=== PATIENT | female | born 1955 | race African-American/Black ===

== ENCOUNTER 2020-05-17 12:45 | Inpatient (IN) | payer MEDICARE, MEDICAID ==
[~2020-05-17] VITALS: Ht 167.6 cm; Wt 94.4 kg
[~2020-05-17 12:45] MED LIST: HYDR12.529 PO; INSU3INS6 SQ; METF-414 PO
[2020-05-17] MEDS ORDERED: METOCLOPRAMIDE HCL 10MG/2ML VIAL IV ONE (13:15)
[2020-05-17] MEDS ORDERED: METOPROLOL TARTRATE 5MG/5ML VIAL IV NR (13:45)
[2020-05-17 14:03] LABS: BASOPHILS % 0.4 % (0.0-2.0); EOSINOPHILS % 4.2 % (0.0-5.0); LYMPHOCYTES % 20.4 % (20.0-50.0); MEAN CORPUSCULAR HEMOGLOBIN 26.4 pg (28.0-32.0); MEAN CORPUSCULAR VOLUME 81.2 fL (81.0-99.0); MEAN PLATELET VOLUME 9.4 fl (7.4-10.4); MONOCYTES % 4.8 % (2.0-8.0); NEUTROPHILS % 70.2 % (40.0-76.0); PLATELET 211 x1000/uL (130-400); RED CELL DISTRIBUTION WIDTH 15.5 % (11.6-14.6)
[2020-05-17 14:07] LABS: CHLORIDE 108 mEq/L (98-107)
[2020-05-17] MEDS ORDERED: DIPHENHYDRAMINE 50MG/ML VIAL IV PRN (14:45)
[2020-05-17] MEDS ORDERED: ENOXAPARIN 40MG/0.4ML SYR SUBCUT SCH (14:45)
[2020-05-17] MEDS ORDERED: ONDANSETRON HCL 4MG/2ML INJ IV PRN (14:45)
[2020-05-17] MEDS ORDERED: CLONIDINE 0.1MG TABLET PO PRN (14:45)
[2020-05-17] MEDS ORDERED: IPRATROPIUM/ALBUTEROL 0.5-3(2.5)MG/3ML NEB HHN PRN (14:45)
[2020-05-17] MEDS ORDERED: ACETAMINOPHEN 325MG TABLET PO PRN (14:45)
[2020-05-17] MEDS ORDERED: POTASSIUM CHLORIDE INJ 40 MEQ in DEXT 5% WATER 250 ML IV NR (15:30)
[2020-05-17 16:01] LABS: PROTHROMBIN TIME 11.1 sec (9.6-11.0)
[2020-05-17] MEDS ORDERED: DILTIAZEM HCL 5MG/ML 5ML VIAL IV PRN (16:15)
[2020-05-17] MEDS: DILTIAZEM HCL 120MG CAPSULE CD 24HR PO SCH (17:52)
[2020-05-17] MEDS: ENOXAPARIN 100MG/ML SYR SUBCUT SCH (17:53)
[2020-05-17] MEDS: INSULIN LISPRO 100 UNITS/ML SUBCUT SCH (17:54)
[2020-05-17] MEDS ORDERED: ENOXAPARIN 30MG/0.3ML SYR SUBCUT SCH (21:00)
[2020-05-17 21:32] VITALS: BP 138/107
[2020-05-17] MEDS ORDERED: INSULIN GLARGINE UD 100 UNITS/ML SYR SUBCUT SCH (22:00)
[2020-05-17] MEDS: METOPROLOL TARTRATE 25MG TABLET PO SCH (22:16)
[2020-05-17] MEDS: ATORVASTATIN CALCIUM 40MG TABLET PO SCH (22:17)
[2020-05-17] MEDS ORDERED: INSU3INS8 SUBCUT (22:49)
[2020-05-17] MEDS ORDERED: ATEN100T MT (22:49)
[2020-05-17] MEDS ORDERED: LISI-186 MT (22:49)
[2020-05-17] MEDS ORDERED: CHLO25TA2 PO (22:49)
[2020-05-17] MEDS ORDERED: DIPH25TA23 PO (22:49)
[2020-05-17] MEDS ORDERED: TC1U15 TP (22:49)
[2020-05-17] MEDS ORDERED: ASPI-1406 MT (22:49)
[2020-05-17] MEDS ORDERED: MULT-1195 MT (22:49)
[2020-05-17] MEDS ORDERED: INSU100I24 SQ (22:49)
[2020-05-17] MEDS ORDERED: GABA250S4 PO (22:49)
[2020-05-17] MEDS ORDERED: FISH MT (22:49)
[2020-05-17] MEDS: INSULIN GLARGINE UD 100 UNITS/ML SYR SUBCUT SCH (22:57)
[2020-05-17] MEDS ORDERED: *PATIENT'S OWN MEDICATION STORAGE XX SCH (23:00)
[2020-05-18] VITALS: BP 98/64
[2020-05-18 04:00] VITALS: BP 119/53
[2020-05-18] MEDS: INSULIN LISPRO 100 UNITS/ML SUBCUT SCH ×3 (05:13→17:58)
[2020-05-18] MEDS: ENOXAPARIN 100MG/ML SYR SUBCUT SCH ×2 (05:14→17:51)
[2020-05-18 06:15] LABS: BASOPHILS % 0.6 % (0.0-2.0); EOSINOPHILS % 5.1 % (0.0-5.0); HEMATOCRIT. 40.8 % (36.0-48.0); HEMOGLOBIN. 13.3 g/dL (12.0-16.0); LYMPHOCYTES % 29.5 % (20.0-50.0); MEAN CORPUSCULAR VOLUME 82.8 fL (81.0-99.0); MEAN PLATELET VOLUME 9.5 fl (7.4-10.4); MONOCYTES % 6.1 % (2.0-8.0); NEUTROPHILS % 58.7 % (40.0-76.0); PLATELET 195 x1000/uL (130-400); RED BLOOD CELL COUNT 4.93 mill/uL (4.2-5.4); RED CELL DISTRIBUTION WIDTH 15.5 % (11.6-14.6)
[2020-05-18 06:34] LABS: CHLORIDE 109 mEq/L (98-107)
[2020-05-18 06:49] LABS: LDL CHOLESTEROL 85 mg/dL (5-100)
[2020-05-18 06:51] LABS: HDL CHOLESTEROL 46 mg/dL (40-59)
[2020-05-18 08:00] VITALS: BP 117/85
[2020-05-18] MEDS ORDERED: LISINOPRIL 5MG TABLET PO SCH (09:00)
[2020-05-18] MEDS: ASPIRIN 81MG TABLET PO SCH (09:15)
[2020-05-18] MEDS: DILTIAZEM HCL 120MG CAPSULE CD 24HR PO SCH (09:16)
[2020-05-18] MEDS: METOPROLOL TARTRATE 25MG TABLET PO SCH (09:16)
[2020-05-18] MEDS ORDERED: POTASSIUM CHLORIDE 20MEQ TABLET SR PO NR ×2 (09:42→10:01)
[2020-05-18] MEDS ORDERED: DIGOXIN 500MCG/2ML AMP IV NR ×2 (10:00→14:30)
[2020-05-18] MEDS ORDERED: POTASSIUM CHLORIDE INJ 40 MEQ in DEXT 5% WATER 250 ML IV NR (10:00)
[2020-05-18] MEDS: INSULIN GLARGINE UD 100 UNITS/ML SYR SUBCUT SCH ×2 (10:30→20:51)
[2020-05-18 12:00] VITALS: BP 110/76
[2020-05-18 16:00] VITALS: BP 107/56
[2020-05-18] MEDS ORDERED: MIDODRINE HCL 2.5MG TABLET PO SCH (16:45)
[2020-05-18 20:00] VITALS: BP 136/70
[2020-05-18] MEDS: ATORVASTATIN CALCIUM 40MG TABLET PO SCH (20:52)
[2020-05-18] MEDS: METOPROLOL TARTRATE 50MG TABLET PO SCH (20:53)
[2020-05-18] MEDS ORDERED: METOPROLOL TARTRATE 5MG/5ML VIAL IV PRN (21:09)
[2020-05-18] MEDS: MIDODRINE HCL 5MG TABLET PO SCH (22:01)
[2020-05-18] MEDS ORDERED: MAGNESIUM 2 G PREMIX 50 ML IV SCH (23:00)
[2020-05-18] MEDS: DILTIAZEM HCL 60MG TABLET PO SCH (23:49)
[2020-05-19] VITALS: BP 146/78
[2020-05-19 04:00] VITALS: BP 137/79
[2020-05-19] MEDS: DILTIAZEM HCL 60MG TABLET PO SCH ×3 (06:23→18:05)
[2020-05-19] MEDS: ENOXAPARIN 100MG/ML SYR SUBCUT SCH ×2 (06:24→18:00)
[2020-05-19] MEDS: INSULIN LISPRO 100 UNITS/ML SUBCUT SCH ×5 (06:25→21:06)
[2020-05-19] MEDS: MIDODRINE HCL 5MG TABLET PO SCH ×3 (06:28→21:07)
[2020-05-19] MEDS ORDERED: DEXTROSE 50% WATER 50ML SYRINGE IV PRN (06:30)
[2020-05-19 07:07] LABS: BASOPHILS % 0.7 % (0.0-2.0); EOSINOPHILS % 4.5 % (0.0-5.0); HEMATOCRIT. 41.5 % (36.0-48.0); HEMOGLOBIN. 13.9 g/dL (12.0-16.0); LYMPHOCYTES % 30.1 % (20.0-50.0); MEAN CORPUSCULAR HEMOGLOBIN 27.6 pg (28.0-32.0); MEAN CORPUSCULAR VOLUME 82.7 fL (81.0-99.0); MEAN PLATELET VOLUME 9.4 fl (7.4-10.4); MONOCYTES % 6.4 % (2.0-8.0); NEUTROPHILS % 58.3 % (40.0-76.0); PLATELET 169 x1000/uL (130-400); RED BLOOD CELL COUNT 5.02 mill/uL (4.2-5.4); RED CELL DISTRIBUTION WIDTH 15.3 % (11.6-14.6)
[2020-05-19 07:14] LABS: CHLORIDE 108 mEq/L (98-107)
[2020-05-19] MEDS: ASPIRIN 81MG TABLET PO SCH (09:27)
[2020-05-19] MEDS: METOPROLOL TARTRATE 50MG TABLET PO SCH ×2 (09:28→21:04)
[2020-05-19] MEDS: INSULIN GLARGINE UD 100 UNITS/ML SYR SUBCUT SCH ×2 (10:17→21:06)
[2020-05-19] MEDS ORDERED: POTASSIUM CHLORIDE 20MEQ TABLET SR PO SCH (10:30)
[2020-05-19] MEDS ORDERED: MAGNESIUM 1 G PREMIX 100 ML IV SCH (11:00)
[2020-05-19] MEDS: BLOOD SUGAR DIAGNOSTIC STRIP TEST SCH ×3 (11:57→21:00)
[2020-05-19 12:19] VITALS: BP 130/69
[2020-05-19 16:00] VITALS: BP 142/72
[2020-05-19 18:28] VITALS: BP 136/69
[2020-05-19 20:00] VITALS: BP 110/74
[2020-05-19] MEDS: ATORVASTATIN CALCIUM 40MG TABLET PO SCH (20:57)
[2020-05-19] MEDS ORDERED: ENOXAPARIN 100MG/ML SYR SUBCUT NR (21:45)
[2020-05-20] VITALS (9 sets, daily range): BP systolic 98–144; BP diastolic 50–86
[2020-05-20] MEDS: DILTIAZEM HCL 60MG TABLET PO SCH ×3 (05:03→12:55)
[2020-05-20] MEDS: MIDODRINE HCL 5MG TABLET PO SCH ×3 (05:05→22:26)
[2020-05-20 05:42] LABS: CHLORIDE 109 mEq/L (98-107)
[2020-05-20 06:10] LABS: PARTIAL THROMBOPLASTIN TIME 28.4 sec (23.4-31.0); PROTHROMBIN TIME 11.1 sec (9.6-11.0)
[2020-05-20 06:14] LABS: BASOPHILS % 0.8 % (0.0-2.0); EOSINOPHILS % 5.6 % (0.0-5.0); HEMATOCRIT. 43.3 % (36.0-48.0); HEMOGLOBIN. 14.2 g/dL (12.0-16.0); LYMPHOCYTES % 29.9 % (20.0-50.0); MEAN CORPUSCULAR HEMOGLOBIN 27.2 pg (28.0-32.0); MEAN CORPUSCULAR VOLUME 82.9 fL (81.0-99.0); MEAN PLATELET VOLUME 9.7 fl (7.4-10.4); MONOCYTES % 7.4 % (2.0-8.0); NEUTROPHILS % 56.3 % (40.0-76.0); PLATELET 198 x1000/uL (130-400); RED BLOOD CELL COUNT 5.22 mill/uL (4.2-5.4); RED CELL DISTRIBUTION WIDTH 15.3 % (11.6-14.6)
[2020-05-20] MEDS: INSULIN LISPRO 100 UNITS/ML SUBCUT SCH ×7 (06:16→21:24)
[2020-05-20] MEDS: BLOOD SUGAR DIAGNOSTIC STRIP TEST SCH ×4 (06:16→20:59)
[2020-05-20] MEDS ORDERED: HEPARIN SODIUM 1,000 UNIT/1ML VIAL IV ONE (08:34)
[2020-05-20] MEDS ORDERED: NICARDIPINE 100MCG/ML 10ML VIAL (CATH LAB) IV ONE (08:34)
[2020-05-20] MEDS ORDERED: NITROGLYCERIN 50MCG/ML 10ML VIAL (CATH LAB) IV ONE (08:34)
[2020-05-20] MEDS ORDERED: MIDODRINE HCL 5MG TABLET PO NR (09:26)
[2020-05-20] MEDS: ASPIRIN 81MG TABLET PO SCH (09:27)
[2020-05-20] MEDS: METOPROLOL TARTRATE 50MG TABLET PO SCH ×2 (09:27→21:23)
[2020-05-20] MEDS: POTASSIUM CHLORIDE 20MEQ TABLET SR PO SCH (09:27)
[2020-05-20] MEDS ORDERED: POTASSIUM CHLORIDE 20MEQ TABLET SR PO NR (09:30)
[2020-05-20] MEDS: INSULIN GLARGINE UD 100 UNITS/ML SYR SUBCUT SCH ×2 (10:00→21:23)
[2020-05-20] MEDS ORDERED: PHENYLEPHRINE 50 MG in DEXT 5% WATER 245 ML IV PRN (10:30)
[2020-05-20] MEDS ORDERED: LIDOCAINE HCL 1% 20ML VIAL (Pyxis) INJ ONE (10:42)
[2020-05-20] MEDS ORDERED: IODIXANOL 320MG/ML 200ML BOTTLE ONE (10:44)
[2020-05-20] MEDS ORDERED: IOHEXOL-300 100 ML BOTTLE ONE (10:44)
[2020-05-20] MEDS ORDERED: FENTANYL CITRATE/PF 50MCG/ML 2ML VIAL ONE (11:00)
[2020-05-20] MEDS ORDERED: MIDAZOLAM HCL 2 MG/2 ML VIAL ONE (11:01)
[2020-05-20] MEDS ORDERED: ATROPINE SULFATE 1MG/10ML SYR IV PRN (11:45)
[2020-05-20] MEDS ORDERED: ACETAMINOPHEN 325MG TABLET PO PRN (11:45)
[2020-05-20] MEDS ORDERED: ONDANSETRON HCL 4MG/2ML INJ IV PRN (11:45)
[2020-05-20] MEDS: APIXABAN 5 MG TABLET PO SCH (17:26)
[2020-05-20] MEDS: DILTIAZEM HCL 90MG TABLET PO SCH ×2 (17:26→23:28)
[2020-05-20] MEDS: ATORVASTATIN CALCIUM 40MG TABLET PO SCH (21:22)
[2020-05-21] VITALS: BP 130/71
[2020-05-21 04:00] VITALS: BP 132/58
[2020-05-21] MEDS: BLOOD SUGAR DIAGNOSTIC STRIP TEST SCH ×2 (06:01→11:37)
[2020-05-21] MEDS: DILTIAZEM HCL 90MG TABLET PO SCH ×2 (06:07→12:00)
[2020-05-21] MEDS: MIDODRINE HCL 5MG TABLET PO SCH ×2 (06:08→15:01)
[2020-05-21] MEDS: INSULIN LISPRO 100 UNITS/ML SUBCUT SCH ×4 (06:50→11:58)
[2020-05-21 07:25] LABS: CHLORIDE 107 mEq/L (98-107)
[2020-05-21 07:27] LABS: BASOPHILS % 0.5 % (0.0-2.0); EOSINOPHILS % 4.3 % (0.0-5.0); HEMATOCRIT. 45.1 % (36.0-48.0); LYMPHOCYTES % 25.7 % (20.0-50.0); MEAN CORPUSCULAR HEMOGLOBIN 27.5 pg (28.0-32.0); MEAN CORPUSCULAR VOLUME 82.6 fL (81.0-99.0); MEAN PLATELET VOLUME 9.3 fl (7.4-10.4); MONOCYTES % 5.7 % (2.0-8.0); NEUTROPHILS % 63.8 % (40.0-76.0); PLATELET 204 x1000/uL (130-400); RED BLOOD CELL COUNT 5.47 mill/uL (4.2-5.4); RED CELL DISTRIBUTION WIDTH 15.5 % (11.6-14.6)
[2020-05-21 08:00] VITALS: BP 131/89
[2020-05-21] MEDS: POTASSIUM CHLORIDE 20MEQ TABLET SR PO SCH (08:32)
[2020-05-21] MEDS: APIXABAN 5 MG TABLET PO SCH (08:33)
[2020-05-21] MEDS: METOPROLOL TARTRATE 50MG TABLET PO SCH (08:33)
[2020-05-21 10:00] VITALS: BP 130/72
[2020-05-21] MEDS ORDERED: APIX5TAB PO (10:47)
[2020-05-21] MEDS ORDERED: MIDO5TAB4 PO (11:56)
[2020-05-21] MEDS ORDERED: ATOR10TA69 MT (11:56)
[2020-05-21] MEDS ORDERED: POTA20TA82 PO (11:56)
[2020-05-21] MEDS ORDERED: METO-539 MT (11:56)
[2020-05-21] MEDS: INSULIN GLARGINE UD 100 UNITS/ML SYR SUBCUT SCH (12:19)
[2020-05-21 12:35] VITALS: BP 124/57
== END 2020-05-21 15:40 | disposition home or self-care (01) | DRG 286 ==
LOC: ER 12:45 → 5WST 14:07 → ENRESERV 20:38 → 3WST 05-20 11:53
PROVIDERS: ADMIT Internal Medicine; ATTEND Internal Medicine
PROC: 4A023N7 Measurement of Cardiac Sampling and Pressure, Left Heart, Percutaneous Approach (ICD-10-PCS; principal; 2020-05-20)
PROC: B2111ZZ Fluoroscopy of Multiple Coronary Arteries using Low Osmolar Contrast (ICD-10-PCS; 2020-05-20)
PROC: B2151ZZ Fluoroscopy of Left Heart using Low Osmolar Contrast (ICD-10-PCS; 2020-05-20)
DX: I48.91 Unspecified atrial fibrillation (principal); I50.21 Acute systolic (congestive) heart failure; I13.0 Hypertensive heart and chronic kidney disease with heart failure and stage 1 through stage 4 chronic kidney disease, or unspecified chronic kidney disease; E11.22 Type 2 diabetes mellitus with diabetic chronic kidney disease; E66.01 Morbid (severe) obesity due to excess calories; E78.5 Hyperlipidemia, unspecified; E87.6 Hypokalemia; R74.01 Elevation of levels of liver transaminase levels; I27.20 Pulmonary hypertension, unspecified; I48.92 Unspecified atrial flutter; I42.9 Cardiomyopathy, unspecified; K76.0 Fatty (change of) liver, not elsewhere classified; N18.30 Chronic kidney disease, stage 3 unspecified; Z20.822 Contact with and (suspected) exposure to COVID-19; Z68.33 Body mass index [BMI] 33.0-33.9, adult; Z88.1 Allergy status to other antibiotic agents; Z87.891 Personal history of nicotine dependence; Z86.73 Personal history of transient ischemic attack (TIA), and cerebral infarction without residual deficits
CPT/HCPCS: 36415; 71045; 76770; 80048; 80053; 80061; 82962; 83735; 83880; 84132; 84439; 84443; 84484; 85025; 87426; 93005; 93306; 93458; 93970; 96374; 99291; C1769; C1887; C1893; J1160; J1200; J1644; J1650; J1815; J2250; J2765; J3010; J3475; J3480; J3490; J7060; Q9967

== ENCOUNTER 2020-08-28 09:30 | Emergency (ER) | payer MEDICARE, MEDICAID ==
[~2020-08-28] VITALS: Ht 172.7 cm; Wt 86.0 kg
[~2020-08-28 09:30] MED LIST changes: +APIX5TAB PO; +ATOR10TA69 MT; +DIPH25TA23 PO; +FISH MT; +GABA250S4 PO; -HYDR12.529 PO; +INSU100I24 SQ; +INSU3INS8 SUBCUT; +METO-539 MT; +MIDO5TAB4 PO; +MULT-1195 MT; +POTA20TA82 PO; +TC1U15 TP
[2020-08-28 10:52] LABS: CLARITY URINE CLEAR (CLEAR); COLOR URINE YELLOW (YELLOW); KETONES URINE NEGATIVE (NEGATIVE); LEUKOCYTE ESTERASE URINE 2+ (NEGATIVE); NITRITE URINE NEGATIVE (NEGATIVE); OCCULT BLOOD URINE 2+ (NEGATIVE); PH URINE 5.5 (4.5-8.0); PROTEIN URINE NEGATIVE (NEGATIVE); SPECIFIC GRAVITY URINE 1.011 (1.005-1.030); UROBILINOGEN URINE 0.2 E.U./dL (0.2-1.0)
[2020-08-28] MEDS ORDERED: SULF1TAB48 MT (10:59)
[2020-08-28 11:17] VITALS: BP 151/97
== END 2020-08-28 11:18 | disposition home or self-care (01) ==
LOC: ER 09:30
DX: R30.0 Dysuria (principal); I12.9 Hypertensive chronic kidney disease with stage 1 through stage 4 chronic kidney disease, or unspecified chronic kidney disease; E11.22 Type 2 diabetes mellitus with diabetic chronic kidney disease; N18.9 Chronic kidney disease, unspecified; Z79.4 Long term (current) use of insulin; Z88.0 Allergy status to penicillin; Z88.1 Allergy status to other antibiotic agents; Z79.899 Other long term (current) drug therapy
CPT/HCPCS: 81003; 87077; 87186; 99283

== ENCOUNTER 2020-12-01 08:57 | Emergency (ER) | payer MEDICARE, MEDICAID ==
[~2020-12-01] VITALS: Ht 172.7 cm; Wt 83.0 kg
[~2020-12-01 08:57] MED LIST changes: +SULF1TAB48 MT
[2020-12-01 09:05] VITALS: BP 152/58
== END 2020-12-01 09:37 | disposition home or self-care (01) ==
LOC: ER 08:57
DX: I10 Essential (primary) hypertension (principal); I48.91 Unspecified atrial fibrillation; E11.9 Type 2 diabetes mellitus without complications; E78.00 Pure hypercholesterolemia, unspecified; Z88.0 Allergy status to penicillin; Z88.1 Allergy status to other antibiotic agents; Z88.9 Allergy status to unspecified drugs, medicaments and biological substances; Z79.899 Other long term (current) drug therapy; Z98.890 Other specified postprocedural states; Z86.73 Personal history of transient ischemic attack (TIA), and cerebral infarction without residual deficits
CPT/HCPCS: 99281

== ENCOUNTER 2021-12-01 17:53 | Emergency (ER) | payer MEDICAID, MEDICARE ==
[~2021-12-01] VITALS: Ht 172.7 cm; Wt 110.0 kg
[~2021-12-01 17:53] MED LIST changes: +POTA-204 PO; -POTA20TA82 PO
[2021-12-02 00:14] LABS: BASOPHILS % 1.1 % (0.0-2.0); EOSINOPHILS % 2.4 % (0.0-5.0); HEMATOCRIT. 43.3 % (36.0-48.0); HEMOGLOBIN. 14.2 g/dL (12.0-16.0); LYMPHOCYTES % 24.6 % (20.0-50.0); MEAN CORPUSCULAR HEMOGLOBIN 27.8 pg (28.0-32.0); MEAN CORPUSCULAR VOLUME 84.7 fL (81.0-99.0); MEAN PLATELET VOLUME 8.6 fl (7.4-10.4); MONOCYTES % 4.6 % (2.0-8.0); NEUTROPHILS % 67.3 % (40.0-76.0); PLATELET 177 x1000/uL (130-400); RED BLOOD CELL COUNT 5.11 mill/uL (4.2-5.4); RED CELL DISTRIBUTION WIDTH 15.2 % (11.6-14.6)
[2021-12-02 00:17] LABS: CHLORIDE 107 mEq/L (98-107)
[2021-12-02 02:48] VITALS: BP 159/92
== END 2021-12-02 02:52 | disposition home or self-care (01) ==
LOC: ER 17:53
DX: I48.91 Unspecified atrial fibrillation (principal); E11.9 Type 2 diabetes mellitus without complications; E78.00 Pure hypercholesterolemia, unspecified; I10 Essential (primary) hypertension; Z79.899 Other long term (current) drug therapy
CPT/HCPCS: 36415; 71045; 80053; 85025; 86850; 86900; 99284

== ENCOUNTER 2022-08-25 02:41 | Inpatient (IN) | payer MEDICARE, MEDICAID ==
[~2022-08-25] VITALS: Ht 167.6 cm; Wt 88.0 kg
[~2022-08-25 02:41] MED LIST changes: +GABA250S11 PO; -GABA250S4 PO
[2022-08-25 03:19] LABS: BASOPHILS % 0.5 % (0.0-2.0); EOSINOPHILS % 2.7 % (0.0-5.0); HEMATOCRIT. 37.1 % (36.0-48.0); HEMOGLOBIN. 12.6 g/dL (12.0-16.0); LYMPHOCYTES % 26.8 % (20.0-50.0); MEAN CORPUSCULAR HEMOGLOBIN 28.1 pg (28.0-32.0); MEAN CORPUSCULAR VOLUME 82.9 fL (81.0-99.0); MEAN PLATELET VOLUME 8.7 fl (7.4-10.4); MONOCYTES % 4.8 % (2.0-8.0); NEUTROPHILS % 65.2 % (40.0-76.0); PLATELET 202 x1000/uL (130-400); RED BLOOD CELL COUNT 4.47 mill/uL (4.2-5.4)
[2022-08-25 03:33] LABS: CHLORIDE 108 mEq/L (98-107)
[2022-08-25] MEDS ORDERED: NITROGLYCERIN OINT 1GM/INCH UDPKT TD ONE (06:00)
[2022-08-25] MEDS ORDERED: FUROSEMIDE 20MG/2ML VIAL IVP ONE (06:00)
[2022-08-25 06:52] LABS: CLARITY URINE CLEAR (CLEAR); COLOR URINE YELLOW (YELLOW); KETONES URINE NEGATIVE (NEGATIVE); LEUKOCYTE ESTERASE URINE NEGATIVE (NEGATIVE); NITRITE URINE NEGATIVE (NEGATIVE); OCCULT BLOOD URINE NEGATIVE (NEGATIVE); PH URINE 6.5 (4.5-8.0); PROTEIN URINE NEGATIVE (NEGATIVE); SPECIFIC GRAVITY URINE 1.006 (1.005-1.030); UROBILINOGEN URINE 0.2 E.U./dL (0.2-1.0)
[2022-08-25 09:00] VITALS: BP 137/85; PULSE 88; RESP 18; TEMP 96.3
[2022-08-25] MEDS ORDERED: ACETAMINOPHEN 325MG TABLET PO PRN (09:30)
[2022-08-25] MEDS ORDERED: ONDANSETRON HCL 4MG/2ML INJ IV PRN (09:30)
[2022-08-25] MEDS ORDERED: ENOXAPARIN 100MG/ML SYR SUBCUT NR (09:45)
[2022-08-25] MEDS ORDERED: ATOR20TA65 PO (10:56)
[2022-08-25] MEDS ORDERED: SEMA0.258 SUBCUT (10:56)
[2022-08-25] MEDS ORDERED: LORA10TA7 PO (10:56)
[2022-08-25] MEDS ORDERED: AMLO5TAB88 PO (10:56)
[2022-08-25] MEDS ORDERED: GABA-529 PO (10:56)
[2022-08-25] MEDS ORDERED: VALS320T16 PO (10:56)
[2022-08-25] MEDS ORDERED: DEXTROSE 50% WATER 50ML SYRINGE IV PRN (11:00)
[2022-08-25] MEDS: FUROSEMIDE 40MG/4ML VIAL IVP SCH (11:25)
[2022-08-25] MEDS ORDERED: POTASSIUM CHLORIDE 20MEQ/PACKET PO NR (11:30)
[2022-08-25] MEDS: BLOOD SUGAR DIAGNOSTIC STRIP TEST SCH ×3 (12:16→21:06)
[2022-08-25] MEDS: INSULIN LISPRO 100 UNITS/ML SUBCUT SCH ×3 (12:17→21:00)
[2022-08-25 12:33] LABS: PROTHROMBIN TIME 10.9 sec (9.6-11.0)
[2022-08-25 15:52] VITALS: BP 124/90; PULSE 109; RESP 20; TEMP 97.7
[2022-08-25] MEDS ORDERED: FUROSEMIDE 40MG/4ML VIAL IVP NR (19:00)
[2022-08-25 20:00] VITALS: BP 126/78; PULSE 89; RESP 18; TEMP 98
[2022-08-25] MEDS: CARVEDILOL 12.5MG TABLET PO SCH (21:06)
[2022-08-25] MEDS ORDERED: ENOXAPARIN 100MG/ML SYR SUBCUT SCH (23:00)
[2022-08-26] VITALS: BP 119/69; PULSE 90; RESP 19; TEMP 97.9
[2022-08-26 04:00] VITALS: BP 125/82; PULSE 88; RESP 18; TEMP 98.1
[2022-08-26 06:14] VITALS: BP 123/78; PULSE 89; TEMP 98.1; O2SAT 98
[2022-08-26] MEDS: BLOOD SUGAR DIAGNOSTIC STRIP TEST SCH (06:51)
[2022-08-26 08:09] VITALS: PULSE 101
[2022-08-26] MEDS: FUROSEMIDE 40MG/4ML VIAL IVP SCH (08:09)
[2022-08-26] MEDS: CARVEDILOL 12.5MG TABLET PO SCH (08:09)
[2022-08-26] MEDS: INSULIN LISPRO 100 UNITS/ML SUBCUT SCH (08:10)
[2022-08-26 08:25] LABS: BASOPHILS % 0.4 % (0.0-2.0); EOSINOPHILS % 1.4 % (0.0-5.0); HEMATOCRIT. 40.3 % (36.0-48.0); HEMOGLOBIN. 13.5 g/dL (12.0-16.0); LYMPHOCYTES % 19.8 % (20.0-50.0); MEAN CORPUSCULAR VOLUME 83.4 fL (81.0-99.0); MEAN PLATELET VOLUME 9.2 fl (7.4-10.4); MONOCYTES % 4.5 % (2.0-8.0); NEUTROPHILS % 73.9 % (40.0-76.0); PLATELET 230 x1000/uL (130-400); RED BLOOD CELL COUNT 4.83 mill/uL (4.2-5.4); RED CELL DISTRIBUTION WIDTH 13.8 % (11.6-14.6)
[2022-08-26 08:52] LABS: CHLORIDE 104 mEq/L (98-107)
[2022-08-26] MEDS ORDERED: LOSARTAN POTASSIUM 50 MG TABLET PO SCH (09:00)
[2022-08-26] MEDS ORDERED: INSULIN GLARGINE 100 UNITS/ML SUBCUT SCH (10:00)
[2022-08-26] MEDS ORDERED: APIXABAN 5 MG TABLET PO SCH (11:00)
== END 2022-08-26 12:00 | disposition home or self-care (01) | DRG 291 ==
LOC: ER 02:41 → MICUSO 07:29 → EDBEDREQ 07:39 → EDBEDREQTM 07:39 → 7WST 09:03
PROVIDERS: ADMIT Internal Medicine; ATTEND Internal Medicine
DX: I11.0 Hypertensive heart disease with heart failure (principal); I50.23 Acute on chronic systolic (congestive) heart failure; E87.6 Hypokalemia; I25.10 Atherosclerotic heart disease of native coronary artery without angina pectoris; I27.20 Pulmonary hypertension, unspecified; I42.9 Cardiomyopathy, unspecified; E11.9 Type 2 diabetes mellitus without complications; E78.00 Pure hypercholesterolemia, unspecified; I48.91 Unspecified atrial fibrillation; E66.9 Obesity, unspecified; Z79.84 Long term (current) use of oral hypoglycemic drugs; Z68.31 Body mass index [BMI] 31.0-31.9, adult; Z86.73 Personal history of transient ischemic attack (TIA), and cerebral infarction without residual deficits; Z88.0 Allergy status to penicillin; Z88.1 Allergy status to other antibiotic agents; Z79.01 Long term (current) use of anticoagulants; Z79.899 Other long term (current) drug therapy; Z88.8 Allergy status to other drugs, medicaments and biological substances
CPT/HCPCS: 36415; 71045; 80048; 80053; 81003; 82962; 83036; 83735; 83880; 84484; 85025; 93005; 93306; 93970; 99285; J1650; J1815; J1940